=== PATIENT | female | born 1995 | race Caucasian/White ===

== ENCOUNTER → 2025-06-05 | Outpatient (CLI) | payer OTHER | LOC: M RAD 07:40 | PROVIDERS: ATTEND Nurse Practitioner Family | DX: Z31.69 Encounter for other general counseling and advice on procreation (principal); N97.9 Female infertility, unspecified ==

== ENCOUNTER → 2025-08-06 | Outpatient (CLI) | payer OTHER | LOC: M PLALAB 14:13 | PROVIDERS: ATTEND Obstetrics & Gynecology | DX: O09.299 Supervision of pregnancy with other poor reproductive or obstetric history, unspecified trimester (principal); Z3A.00 Weeks of gestation of pregnancy not specified ==

== ENCOUNTER → 2025-08-08 | Outpatient (CLI) | payer OTHER | LOC: M PLALAB 14:03 | PROVIDERS: ATTEND Obstetrics & Gynecology | DX: O09.299 Supervision of pregnancy with other poor reproductive or obstetric history, unspecified trimester (principal); Z3A.00 Weeks of gestation of pregnancy not specified ==

== ENCOUNTER → 2025-08-10 | Outpatient (CLI) | payer OTHER | LOC: M PLALAB 13:57 | PROVIDERS: ATTEND Obstetrics & Gynecology | DX: O09.299 Supervision of pregnancy with other poor reproductive or obstetric history, unspecified trimester (principal); Z3A.00 Weeks of gestation of pregnancy not specified ==

== ENCOUNTER → 2025-08-14 | Outpatient (CLI) | payer OTHER | LOC: M PLALAB 08:52 | PROVIDERS: ATTEND Obstetrics & Gynecology | DX: O09.299 Supervision of pregnancy with other poor reproductive or obstetric history, unspecified trimester (principal) ==

== ENCOUNTER → 2025-08-16 | Outpatient (CLI) | payer OTHER | LOC: M PLALAB 13:48 | PROVIDERS: ATTEND Advanced Practice Midwife | DX: O02.81 Inappropriate change in quantitative human chorionic gonadotropin (hCG) in early pregnancy (principal); Z3A.00 Weeks of gestation of pregnancy not specified ==

== ENCOUNTER → 2025-08-17 | Outpatient (CLI) | payer OTHER | LOC: M RAD 09:47 | PROVIDERS: ATTEND Advanced Practice Midwife | DX: O02.81 Inappropriate change in quantitative human chorionic gonadotropin (hCG) in early pregnancy (principal); Z3A.01 Less than 8 weeks gestation of pregnancy ==

== ENCOUNTER → 2025-08-28 | Outpatient (CLI) | payer OTHER | LOC: M PLALAB 09:47 | PROVIDERS: ATTEND Obstetrics & Gynecology | DX: O02.89 Other abnormal products of conception (principal) ==

== ENCOUNTER → 2025-08-28 | Outpatient (REF) | payer OTHER | LOC: M PLALAB 09:29 | PROVIDERS: ATTEND Obstetrics & Gynecology | DX: Z53.9 Procedure and treatment not carried out, unspecified reason (principal) ==

== ENCOUNTER → 2025-09-03 | Outpatient (CLI) | payer OTHER | LOC: M WHC 07:41 | PROVIDERS: ATTEND Obstetrics & Gynecology | DX: O02.89 Other abnormal products of conception (principal) ==

== ENCOUNTER → 2025-09-06 | Outpatient (CLI) | payer OTHER ==
[~2025-09-06] MED LIST: IBUP80TA PO; ONDA-282 PO
== END ==
LOC: M PLALAB 14:46
PROVIDERS: ATTEND Advanced Practice Midwife
DX: N96 Recurrent pregnancy loss (principal); O02.89 Other abnormal products of conception

== ENCOUNTER 2025-09-11 10:30 | Day surgery (SDC) | payer OTHER ==
[~2025-09-11] VITALS: Ht 154.9 cm; Wt 51.7 kg
[2025-09-11] MEDS ORDERED: LIDOCAINE 2% 100 MG/5 ML SDV (FOR ANES.) As Ordered ONE (10:38)
[2025-09-11] MEDS ORDERED: MIDAZOLAM INJ 2 MG/2 ML VIAL As Ordered ONE (10:38)
[2025-09-11] MEDS ORDERED: ROCURONIUM BROMIDE 50MG/5ML VIAL As Ordered ONE (12:06)
[2025-09-11] MEDS ORDERED: KETOROLAC 30 MG/ML 1 ML VIAL As Ordered ONE (13:09)
[2025-09-11] MEDS ORDERED: ACETAMINOPHEN 1000MG/100ML IV BAG As Ordered ONE (13:09)
[2025-09-11] MEDS ORDERED: dexAMETHasone 4 MG/ML 1 ML VIAL As Ordered ONE (13:09)
[2025-09-11] MEDS ORDERED: ONDANSETRON 4MG/2ML VIAL As Ordered ONE (13:09)
[2025-09-11 13:15] LABS: PLATELET COUNT, AUTOMATED 194 10^3/uL (150-450)
[2025-09-11] MEDS ORDERED: SUGAMMADEX SODIUM 500 MG/5 ML VIAL As Ordered ONE (13:19)
[2025-09-11] MEDS: DOXYCYCLINE HYCLATE 100 MG in DEXTROSE 5% (D5W) MINI-BAG PLU 100 ML IV ONE (13:20)
[2025-09-11] MEDS: SILVER NITRATE APPLICATOR (1 = QTY 10) As Ordered ONE (13:32)
[2025-09-11] MEDS ORDERED: IBUP80TA PO (13:44)
[2025-09-11] MEDS ORDERED: HYDROMORPHONE HCL 0.5 MG/0.5 ML SYRINGE IV PRN (13:45)
[2025-09-11] MEDS ORDERED: ONDA-282 PO (13:45)
[2025-09-11] MEDS ORDERED: LR 1,000 ML IV SCH (13:45)
[2025-09-11] MEDS ORDERED: ONDANSETRON 4MG/2ML VIAL IV PRN (13:45)
[2025-09-11 15:55] VITALS: BP 93/51; TEMP 98.6; O2SAT 100
== END 2025-09-11 16:30 | disposition home or self-care (01) ==
LOC: M SDC 10:30
PROVIDERS: ATTEND Obstetrics & Gynecology
DX: O02.1 Missed abortion (principal)
CPT/HCPCS: 59820; 85027; 86850; 86900; 86901; 88305; J0131; J1100; J1271; J1885; J2250; J2405; J2790; J3010

== ENCOUNTER → 2025-09-20 | Outpatient (CLI) | payer OTHER | LOC: M PLALAB 09:23 | PROVIDERS: ATTEND Advanced Practice Midwife | DX: O08.89 Other complications following an ectopic and molar pregnancy (principal) ==

== ENCOUNTER → 2025-09-27 | Outpatient (REF) | payer OTHER | LOC: M SFHCWAGY 13:09 | PROVIDERS: ATTEND Advanced Practice Midwife | DX: O08.89 Other complications following an ectopic and molar pregnancy (principal); Z3A.00 Weeks of gestation of pregnancy not specified ==

== ENCOUNTER → 2025-10-03 | Outpatient (CLI) | payer OTHER | LOC: M PLALAB 13:28 | PROVIDERS: ATTEND Obstetrics & Gynecology | DX: O08.89 Other complications following an ectopic and molar pregnancy (principal) ==

== ENCOUNTER → 2025-10-10 | Outpatient (CLI) | payer OTHER ==
[2025-10-10 14:27] LABS: PLATELET COUNT, AUTOMATED 255 10^3/uL (150-450)
[2025-10-10 14:28] LABS: ALT/SGPT 17 U/L (7.0-40); AST/SGOT 13 U/L (<34); CALCIUM LEVEL 8.8 MG/DL (8.5-10.1); CARBON DIOXIDE LEVEL 27 MMOL/L (20-31); CHLORIDE LEVEL 106 MMOL/L (98-107); CREATININE FOR GFR 0.71 MG/DL (0.55-1.30); FREE T4 1.13 NG/DL (0.89-1.76); GLOMERULAR FILTRATION RATE > 90.0 (>60); HCG, SERUM QUANTITATIVE 24.0 MIU/ML (<4.2); IRON (FE) 93 UG/DL (50-170); MAGNESIUM LEVEL 2.0 MG/DL (1.8-2.4); POTASSIUM SERUM 4.2 MMOL/L (3.5-5.1); SODIUM LEVEL 142 MMOL/L (136-145)
[2025-10-12 16:20] LABS: CARDIOLIPIN IGA ANTIBODY < 2.0 APL-U/mL (<20.0); CARDIOLIPIN IGG ANTIBODY < 2.0 GPL-U/mL (<20.0); CARDIOLIPIN IGM ANTIBODY 2.1 MPL-U/mL (<20.0)
== END ==
LOC: M PLALAB 09:50
PROVIDERS: ATTEND Advanced Practice Midwife
DX: N96 Recurrent pregnancy loss (principal); Z87.59 Personal history of other complications of pregnancy, childbirth and the puerperium; Z31.430 Encounter of female for testing for genetic disease carrier status for procreative management; O08.89 Other complications following an ectopic and molar pregnancy